=== PATIENT | male | born 1955 | race Caucasian/White ===

== ENCOUNTER 2016-06-25 14:46 | Emergency (ER) | payer BC, MEDICARE ==
[~2016-06-25] VITALS: Ht 167.6 cm; Wt 72.6 kg
[~2016-06-25 14:46] MED LIST: AMINOPHYLLIN200 MG PO; ANAPROX DS550 MG PO; ANTIVERT/2525 MG PO; ATENOLOL25 MG PO; BLOCADREN5 MG PO; COUMADIN10 M1 PO; COUMADIN5 M2 PO; FLEXERIL10 MG PO; HUMIRA40 MG/0.8 MR; IBU-8800 MG PO; LISINOPRIL5 MG PO; MEDROL DOSEPAK4 MG PO; MOTRIN800 MG PO; PERCOCET 325 MG1 TA7 PO; PREDNISONE10 MG PO; QVAR0.08 MG/AC INH; ROBITUSSIN DM 105 ML PO; SIMVASTATIN40 MG PO; VICO10300 PO; VICODIN 5/500 505 MG PO; ZITHROMAX Z PA250 MG PO; ZOCOR5 MG
[2016-06-25 14:55] VITALS: BP 136/85
[2016-06-25 15:17] LABS: BILIRUBIN NEGATIVE (NEGATIVE); BLOOD 2+ (NEGATIVE); CLARITY CLOUDY (CLEAR); COLOR YELLOW (YELLOW); GLUCOSE NEGATIVE (NEGATIVE); KETONE NEGATIVE (NEGATIVE); LEUKO ESTERASE 3+ (NEGATIVE); NITRITE POSITIVE (NEGATIVE); PROTEIN TRACE (NEGATIVE); SPECIFIC GRAVITY 1.015 (1.005-1.030); UROBILINOGEN 0.2 E.U./dl (0.2-1.0)
[2016-06-25 15:27] LABS: URINE REFLEX COMMENT YES (NO); WBC TNTC wbc/hpf (0-5)
[2016-06-25] MEDS ORDERED: PYRIDIUM200 M1 PO (15:31)
[2016-06-25] MEDS ORDERED: OMNICEF300 MG PO (15:31)
== END 2016-06-25 15:36 | disposition home or self-care (01) ==
LOC: ED 14:46
PROVIDERS: Nurse Practitioner Family
DX: N30.00 Acute cystitis without hematuria (principal); F17.200 Nicotine dependence, unspecified, uncomplicated; Z88.1 Allergy status to other antibiotic agents; Z79.01 Long term (current) use of anticoagulants; Z79.899 Other long term (current) drug therapy

== ENCOUNTER → 2016-09-12 | Outpatient (CLI) | payer BC ==
[~2016-09-12] MED LIST changes: +OMNICEF300 MG PO; +PYRIDIUM200 M1 PO
== END | disposition home or self-care (01) ==
LOC: CARD 07:29
DX: I08.3 Combined rheumatic disorders of mitral, aortic and tricuspid valves (principal); Z95.2 Presence of prosthetic heart valve

== ENCOUNTER 2016-12-18 01:33 | Emergency (ER) | payer BC ==
[~2016-12-18] VITALS: Ht 172.7 cm; Wt 72.6 kg
[2016-12-18 01:33] VITALS: BP 134/76
== END 2016-12-18 02:34 | disposition home or self-care (01) ==
LOC: ED 01:33
DX: M25.562 Pain in left knee (principal); M19.90 Unspecified osteoarthritis, unspecified site; Z88.1 Allergy status to other antibiotic agents; Z79.899 Other long term (current) drug therapy; Z79.02 Long term (current) use of antithrombotics/antiplatelets

== ENCOUNTER 2017-12-23 12:03 | Emergency (ER) | payer BC, OTHER ==
[~2017-12-23] VITALS: Ht 170.1 cm; Wt 76.7 kg
--- NOTE | ~2017-12-23 | EKG ---
[place], [place] ELECTROCARDIOGRAM REPORT NAME: RAMON PERALTA UNIT #: [id number] ROOM: DOCTOR: DAYNEANY DRAFT REPORT BIRTHDATE: [birth year] [facility] Test Date: 2017-12-23 Test Time: 12:11:13 Pat Name: RAMON PERALTA Department: Room: Gender: Proposal Development Manager: 15 : 1955 Requested By: BECK CALERO Order Number: [id number] Reading MD: Ken Nails MD Measurements Intervals [place] Rate: 71 P: 38 TN: 232 QRS: 32 QRSD: 95 T: 77 QT: 394 QTc: 429 Interpretive Statements Sinus rhythm Prolonged TN interval Probable left atrial enlargement RSR' in V1 or V2, right VCD or RVH Electronically Signed On 12-24-2017 11:11:06 PDT by Ken Nails MD CM:EKGRPT:ELECTROCARDIOGRAM REPORT [id number] BECK ALVARADO DRAFT REPORT BECK CALERO M.D.
[2017-12-23 12:13] VITALS: BP 135/79
[2017-12-23] MEDS ORDERED: ATENOLOL25 MG PO (12:14)
[2017-12-23] MEDS ORDERED: NORCO 5-325 TA1 EACH PO (12:15)
[2017-12-23 12:27] LABS: BASO % 0.2 % (0.0-1.0); EOS # 0.1 10*3/uL (0.0-0.4); EOS % 1.5 % (1.0-4.0); HEMATOCRIT 39.5 % (42.0-52.0); HEMOGLOBIN 13.3 g/dl (14.0-18.0); LYMPH # 1.2 10*3/uL (1.3-4.4); LYMPH % 22.5 % (27.0-41.0); MEAN CELL VOLUME 98.5 fl (80.0-94.0); MEAN CORPUSCULAR HGB 33.2 pg (27.0-31.0); MEAN CORPUSCULAR HGB CONC 33.7 g/dl (33.0-37.0); MEAN PLATELET VOLUME 10.3 fl (9.6-12.3); MONO # 0.4 10*3/uL (0.1-1.0); MONO % 7.7 % (3.0-9.0); NEUT # 3.5 10*3/uL (2.3-7.9); NEUT % 67.7 % (47.0-73.0); PLATELET COUNT AUTOMATED 160 10*3/uL (130-400); RED BLOOD COUNT 4.01 10*6/uL (4.50-5.90); RED CELL DISTRI WIDTH 13.3 % (0-14.5); WHITE BLOOD COUNT 5.2 10*3/uL (4.8-10.8)
[2017-12-23 12:36] LABS: ACT PARTIAL THROMBO TIME 34.7 SECONDS (20.8-31.5); INTERNATIONAL NORM RATIO 2.6 (2.0-3.5)
[2017-12-23 12:49] LABS: ALBUMIN 3.4 gm/dl (3.1-4.5); ALKALINE PHOSPHATASE 65 U/L (45-117); BUN 14 mg/dl (7-24); CHLORIDE 101 mmol/L (98-107); CREATININE 1.02 mg/dL (0.70-1.30); POTASSIUM 4.1 mmol/L (3.5-5.1); SGOT/AST 22 IU/L (3-35); SGPT/ALT 19 U/L (12-78); SODIUM 133 mmol/L (136-145); TOTAL PROTEIN 7.2 gm/dL (6.4-8.2)
[2017-12-23 12:52] LABS: TROPONIN I < 0.015 ng/ml (<0.045)
[2017-12-23] MEDS ORDERED: CHLORZOXAZONE500 M2 PO (14:16)
[2017-12-23] MEDS ORDERED: NAPROSYN500 MG PO (14:16)
== END 2017-12-23 14:30 | disposition home or self-care (01) ==
LOC: ED 12:03
PROVIDERS: Emergency Medicine
DX: S20.219A Contusion of unspecified front wall of thorax, initial encounter (principal); R03.0 Elevated blood-pressure reading, without diagnosis of hypertension; F17.200 Nicotine dependence, unspecified, uncomplicated; Z79.899 Other long term (current) drug therapy; Z79.01 Long term (current) use of anticoagulants; Z98.890 Other specified postprocedural states; Z88.1 Allergy status to other antibiotic agents; V49.88XA Car occupant (driver) (passenger) injured in other specified transport accidents, initial encounter; Y93.89 Activity, other specified; Y92.413 State road as the place of occurrence of the external cause; Y99.9 Unspecified external cause status

== ENCOUNTER → 2018-09-03 | Outpatient (CLI) | payer BC ==
[~2018-09-03] MED LIST changes: +CHLORZOXAZONE500 M2 PO; +NAPROSYN500 MG PO; +NORCO 5-325 TA1 EACH PO
[2018-09-03 10:44] LABS: BASO % 0.2 % (0.0-1.0); EOS % 0.4 % (1.0-4.0); HEMOGLOBIN 13.2 g/dl (14.0-18.0); LYMPH # 1.6 10*3/uL (1.3-4.4); LYMPH % 27.9 % (27.0-41.0); MEAN CELL VOLUME 101.3 fl (80.0-94.0); MEAN CORPUSCULAR HGB 33.4 pg (27.0-31.0); MEAN PLATELET VOLUME 9.4 fl (9.6-12.3); MONO # 0.7 10*3/uL (0.1-1.0); MONO % 11.6 % (3.0-9.0); NEUT # 3.4 10*3/uL (2.3-7.9); NEUT % 59.7 % (47.0-73.0); PLATELET COUNT AUTOMATED 251 10*3/uL (130-400); RED BLOOD COUNT 3.95 10*6/uL (4.50-5.90); RED CELL DISTRI WIDTH 13.9 % (0-14.5); WHITE BLOOD COUNT 5.6 10*3/uL (4.8-10.8)
[2018-09-03 11:05] LABS: ALKALINE PHOSPHATASE 86 U/L (45-117); BILIRUBIN, DIRECT < 0.1 mg/dL (0.0-0.2); SGOT/AST 33 IU/L (3-35); SGPT/ALT 33 U/L (12-78); TOTAL PROTEIN 7.5 gm/dL (6.4-8.2)
[2018-09-03 11:29] LABS: INTERNATIONAL NORM RATIO 8.4 (2.0-3.5)
== END | disposition home or self-care (01) ==
LOC: LAB 10:16
PROVIDERS: Internal Medicine
DX: T45.511A Poisoning by anticoagulants, accidental (unintentional), initial encounter (principal)

== ENCOUNTER → 2018-12-06 | Outpatient (CLI) | payer BC ==
[2018-12-06 10:33] LABS: ALBUMIN 3.7 gm/dl (3.1-4.5); BUN 16 mg/dl (7-24); CHLORIDE 99 mmol/L (98-107); CREATININE 0.99 mg/dL (0.70-1.30); PHOSPHOROUS 2.7 mg/dL (2.5-4.9); POTASSIUM 4.8 mmol/L (3.5-5.1); SODIUM 132 mmol/L (136-145)
== END | disposition home or self-care (01) ==
LOC: LAB 09:15
PROVIDERS: Internal Medicine
DX: E87.5 Hyperkalemia (principal)

== ENCOUNTER 2020-06-26 07:17 | Emergency (ER) | payer OTHER ==
[~2020-06-26] VITALS: Ht 167.6 cm; Wt 74.8 kg
[~2020-06-26 07:17] MED LIST changes: -COUMADIN10 M1 PO; +Coumadin10 MG PO
[2020-06-26 07:23] VITALS: BP 152/94
[2020-06-26 07:57] LABS: BASO % 0.2 % (0.0-1.0); EOS # 0.1 10*3/uL (0.0-0.4); EOS % 2.4 % (1.0-4.0); HEMATOCRIT 41.5 % (42.0-52.0); LYMPH # 1.6 10*3/uL (1.3-4.4); LYMPH % 29.4 % (27.0-41.0); MEAN CORPUSCULAR HGB 29.8 pg (27.0-31.0); MONO # 0.8 10*3/uL (0.1-1.0); MONO % 14.1 % (3.0-9.0); NEUT # 2.9 10*3/uL (2.3-7.9); NEUT % 53.7 % (47.0-73.0); PLATELET COUNT AUTOMATED 193 10*3/uL (130-400); RED BLOOD COUNT 4.46 10*6/uL (4.50-5.90); RED CELL DISTRI WIDTH 14.6 % (0-14.5); WHITE BLOOD COUNT 5.5 10*3/uL (4.8-10.8)
[2020-06-26 08:07] LABS: ACT PARTIAL THROMBO TIME 47.5 SECONDS (20.0-32.1); INTERNATIONAL NORM RATIO 2.6 (2.0-3.5)
[2020-06-26 08:08] LABS: BILIRUBIN Negative (Negative); BLOOD Negative (Negative); CLARITY Clear (Clear); COLOR Yellow (Yellow); GLUCOSE Negative (Negative); KETONE Negative (Negative); LEUKO ESTERASE Negative (Negative); NITRITE Negative (Negative); PH 7.5 (4.5-8.0); SPECIFIC GRAVITY <= 1.005 (1.001-1.030); UROBILINOGEN 0.2 E.U./dl (0.0-1.0)
[2020-06-26 08:13] LABS: ALBUMIN 3.2 gm/dl (3.1-4.5); ALKALINE PHOSPHATASE 112 U/L (45-117); BUN 19 mg/dl (7-24); CHLORIDE 98 mmol/L (98-107); CREATININE 1.12 mg/dL (0.70-1.30); LIPASE 49 U/L (73-393); POTASSIUM 4.2 mmol/L (3.5-5.1); SGOT/AST 25 IU/L (3-35); SGPT/ALT 20 U/L (12-78); SODIUM 132 mmol/L (136-145); TOTAL PROTEIN 8.1 gm/dL (6.4-8.2)
[2020-06-26 08:22] LABS: RBC 0-2 rbc/hpf (0-2); WBC 0-2 wbc/hpf (0-5)
[2020-06-26] MEDS ORDERED: AUGMENTIN 875875 MG PO ×2 (09:19)
[2020-08-03] MEDS ORDERED: Coumadin7.5 MG PO (15:35)
[2020-08-03] MEDS ORDERED: TOPROL XL25 MG PO (15:36)
[2020-08-03] MEDS ORDERED: HYDROCODONE-AC1 EACH PO (15:39)
[2020-08-03] MEDS ORDERED: Lovenox40 MG/0.4 SC (15:40)
== END 2020-06-26 09:25 | disposition home or self-care (01) ==
LOC: ED 07:17
PROVIDERS: Emergency Medicine
DX: K57.32 Diverticulitis of large intestine without perforation or abscess without bleeding (principal); M17.11 Unilateral primary osteoarthritis, right knee; Z88.1 Allergy status to other antibiotic agents; Z79.899 Other long term (current) drug therapy; Z79.01 Long term (current) use of anticoagulants; Z98.890 Other specified postprocedural states; Z98.61 Coronary angioplasty status

== ENCOUNTER → 2020-08-03 | Outpatient (CLI) | payer OTHER ==
[~2020-08-03] MED LIST changes: +AUGMENTIN 875875 MG PO; +Coumadin7.5 MG PO; +HYDROCODONE-AC1 EACH PO; +Lovenox40 MG/0.4 SC; +TOPROL XL25 MG PO
== END | disposition home or self-care (01) ==
LOC: COVID19 08:30
PROVIDERS: ATTEND Nurse Practitioner
DX: Z01.812 Encounter for preprocedural laboratory examination (principal); Z20.822 Contact with and (suspected) exposure to COVID-19

== ENCOUNTER → 2020-08-06 | Day surgery (SDC) | payer OTHER ==
[~2020-08-06] VITALS: Ht 167.6 cm; Wt 77.1 kg
[2020-08-06 06:30] VITALS: BP 155/87
[2020-08-06 07:48] VITALS: BP 99/42
[2020-08-06 08:02] VITALS: BP 109/65
[2020-08-06 08:16] VITALS: BP 114/88
== END ==
LOC: SDC 08-03 08:00
PROVIDERS: ATTEND Surgery
DX: Z12.11 Encounter for screening for malignant neoplasm of colon (principal); K57.32 Diverticulitis of large intestine without perforation or abscess without bleeding; K57.30 Diverticulosis of large intestine without perforation or abscess without bleeding; I10 Essential (primary) hypertension; M06.9 Rheumatoid arthritis, unspecified; I25.10 Atherosclerotic heart disease of native coronary artery without angina pectoris; Z95.1 Presence of aortocoronary bypass graft; F17.210 Nicotine dependence, cigarettes, uncomplicated; Z79.899 Other long term (current) drug therapy

== ENCOUNTER 2022-06-27 09:25 | Emergency (ER) | payer OTHER ==
[~2022-06-27] VITALS: Wt 77.1 kg
[2022-06-27 09:34] VITALS: BP 149/98
[2022-06-27 11:01] LABS: BASO % 0.3 % (0.0-1.0); EOS % 0.7 % (1.0-4.0); HEMATOCRIT 42.1 % (42.0-52.0); LYMPH % 17.1 % (27.0-41.0); MEAN CELL VOLUME 98.6 fl (80.0-94.0); MEAN CORPUSCULAR HGB CONC 33.5 g/dl (33.0-37.0); MEAN PLATELET VOLUME 10.8 fl (9.6-12.3); MONO # 0.6 10*3/uL (0.1-1.0); MONO % 10.6 % (3.0-9.0); NEUT # 4.2 10*3/uL (2.3-7.9); PLATELET COUNT AUTOMATED 162 10*3/uL (130-400); RED BLOOD COUNT 4.27 10*6/uL (4.50-5.90); RED CELL DISTRI WIDTH 14.5 % (0-14.5); WHITE BLOOD COUNT 5.9 10*3/uL (4.8-10.8)
[2022-06-27 11:17] LABS: ALKALINE PHOSPHATASE 95 U/L (46-116); BUN 17 mg/dl (9-23); CHLORIDE 99 mmol/L (98-107); POTASSIUM 4.2 mmol/L (3.4-5.1); SGPT/ALT 23 U/L (10-49); TOTAL PROTEIN 7.8 gm/dL (6.0-8.0); URIC ACID 6.5 mg/dL (3.7-9.2)
[2022-06-27 11:24] LABS: ACT PARTIAL THROMBO TIME 56.9 SECONDS (20.0-32.1)
[2022-06-27 11:32] LABS: INTERNATIONAL NORM RATIO 4.8 (2.0-3.5)
[2022-06-27] MEDS ORDERED: CEPHALEXIN500 M1 PO (12:17)
== END 2022-06-27 12:51 | disposition home or self-care (01) ==
LOC: ED 09:25
PROVIDERS: Emergency Medicine
DX: L03.113 Cellulitis of right upper limb (principal); Z88.1 Allergy status to other antibiotic agents; Z98.890 Other specified postprocedural states; F10.90 Alcohol use, unspecified, uncomplicated

== ENCOUNTER → 2022-11-30 | Outpatient (CLI) | payer OTHER ==
[~2022-11-30] MED LIST changes: +CEPHALEXIN500 M1 PO
[2022-11-30 09:04] LABS: BASO % 0.4 % (0.0-1.0); EOS # 0.1 10*3/uL (0.0-0.4); EOS % 1.6 % (1.0-4.0); HEMATOCRIT 42.2 % (42.0-52.0); LYMPH # 1.2 10*3/uL (1.3-4.4); LYMPH % 23.5 % (27.0-41.0); MEAN CELL VOLUME 97.7 fl (80.0-94.0); MEAN CORPUSCULAR HGB 32.2 pg (27.0-31.0); MEAN CORPUSCULAR HGB CONC 32.9 g/dl (33.0-37.0); MEAN PLATELET VOLUME 10.6 fl (9.6-12.3); MONO # 0.6 10*3/uL (0.1-1.0); MONO % 11.9 % (3.0-9.0); NEUT # 3.2 10*3/uL (2.3-7.9); NEUT % 62.4 % (47.0-73.0); PLATELET COUNT AUTOMATED 187 10*3/uL (130-400); RED BLOOD COUNT 4.32 10*6/uL (4.50-5.90); RED CELL DISTRI WIDTH 14.1 % (0-14.5); WHITE BLOOD COUNT 5.1 10*3/uL (4.8-10.8)
[2022-11-30 09:44] LABS: ALKALINE PHOSPHATASE 87 U/L (46-116); BUN 10 mg/dl (9-23); CHLORIDE 100 mmol/L (98-107); SGPT/ALT 17 U/L (10-49); TOTAL PROTEIN 7.9 gm/dL (6.0-8.0)
[2022-12-02 19:06] LABS: TB1 Ag VALUE 0.05 IU/mL (.)
== END | disposition home or self-care (01) ==
LOC: LAB 08:19
PROVIDERS: ATTEND Nurse Practitioner Family
DX: L40.0 Psoriasis vulgaris (principal)

== ENCOUNTER 2023-10-08 07:19 | Emergency (ER) | payer OTHER ==
[~2023-10-08] VITALS: Ht 167.6 cm; Wt 73.9 kg
[2023-10-08 08:39] VITALS: BP 99/61
[2023-10-08] MEDS ORDERED: ACETAMINOPHEN 325 MG TAB PO ONE (08:40)
== END 2023-10-08 12:18 | disposition home or self-care (01) ==
LOC: ED 07:19
DX: S09.8XXA Other specified injuries of head, initial encounter (principal); R42 Dizziness and giddiness; I10 Essential (primary) hypertension; I25.10 Atherosclerotic heart disease of native coronary artery without angina pectoris; M19.90 Unspecified osteoarthritis, unspecified site; Z88.1 Allergy status to other antibiotic agents; Z98.890 Other specified postprocedural states; W19.XXXA Unspecified fall, initial encounter; Y93.89 Activity, other specified; Y92.89 Other specified places as the place of occurrence of the external cause; Y99.8 Other external cause status

== ENCOUNTER 2023-10-28 17:43 | Emergency (ER) | payer OTHER ==
[~2023-10-28] VITALS: Ht 167.6 cm; Wt 74.8 kg
[2023-10-28 17:54] VITALS: BP 127/68
[2023-10-28] MEDS ORDERED: ceFAZolin sodium/sodium chlor 10 ML IV ONE (18:00)
[2023-10-28] MEDS ORDERED: SODIUM CHLORIDE 0.9% 1,000 ML IV ONE (18:00)
[2023-10-28] MEDS ORDERED: Doxycycline Hyclate 100 MG CAP PO ONE (18:05)
[2023-10-28] MEDS ORDERED: VIBRAMYCIN100 MG PO (18:06)
[2023-10-28] MEDS ORDERED: CEPHALEXIN500 M1 PO (18:06)
[2023-10-28 18:32] LABS: BASO % 0.3 % (0.0-1.0); EOS # 0.2 10*3/uL (0.0-0.4); EOS % 2.9 % (1.0-4.0); LYMPH % 32.8 % (27.0-41.0); MEAN CELL VOLUME 94.4 fl (80.0-94.0); MEAN CORPUSCULAR HGB 31.6 pg (27.0-31.0); MEAN CORPUSCULAR HGB CONC 33.5 g/dl (33.0-37.0); MEAN PLATELET VOLUME 10.7 fl (9.6-12.3); MONO # 0.6 10*3/uL (0.1-1.0); MONO % 9.5 % (3.0-9.0); NEUT # 3.4 10*3/uL (2.3-7.9); NEUT % 54.3 % (47.0-73.0); PLATELET COUNT AUTOMATED 201 10*3/uL (130-400); RED BLOOD COUNT 3.92 10*6/uL (4.50-5.90); RED CELL DISTRI WIDTH 13.4 % (0-14.5); WHITE BLOOD COUNT 6.2 10*3/uL (4.8-10.8)
[2023-10-28 18:48] LABS: BUN 18 mg/dl (9-23); CHLORIDE 99 mmol/L (98-107); POTASSIUM 3.9 mmol/L (3.4-5.1)
== END 2023-10-28 18:47 | disposition home or self-care (01) ==
LOC: ED 17:43
PROVIDERS: Emergency Medicine
DX: L03.116 Cellulitis of left lower limb (principal); I10 Essential (primary) hypertension; I25.10 Atherosclerotic heart disease of native coronary artery without angina pectoris; M19.90 Unspecified osteoarthritis, unspecified site; Z88.1 Allergy status to other antibiotic agents; Z98.890 Other specified postprocedural states

== ENCOUNTER 2024-06-05 17:57 | Emergency (ER) | payer OTHER ==
[~2024-06-05] VITALS: Ht 167.6 cm; Wt 77.1 kg
[~2024-06-05 17:57] MED LIST changes: +VIBRAMYCIN100 MG PO
[2024-06-05 18:08] VITALS: BP 137/70
== END 2024-06-05 20:40 | disposition left against medical advice (07) ==
LOC: ED 17:57
DX: M54.2 Cervicalgia (principal); M43.6 Torticollis; Z88.1 Allergy status to other antibiotic agents; Z79.899 Other long term (current) drug therapy; Z79.01 Long term (current) use of anticoagulants; Z98.890 Other specified postprocedural states; Z98.61 Coronary angioplasty status; Z53.29 Procedure and treatment not carried out because of patient's decision for other reasons; V69.49XA Driver of heavy transport vehicle injured in collision with other motor vehicles in traffic accident, initial encounter; Y93.89 Activity, other specified; Y92.488 Other paved roadways as the place of occurrence of the external cause; Y99.8 Other external cause status

== ENCOUNTER 2024-10-16 08:54 | Emergency (ER) | payer OTHER ==
[~2024-10-16] VITALS: Ht 167.6 cm; Wt 72.6 kg
[2024-10-16 09:28] VITALS: BP 104/70
[2024-10-16] MEDS ORDERED: MORPHINE Sulfate 2 MG/ML SYR IM ONE (09:55)
== END 2024-10-16 12:52 | disposition home or self-care (01) ==
LOC: ED 08:54
DX: S40.012A Contusion of left shoulder, initial encounter (principal); Z79.899 Other long term (current) drug therapy; Z88.1 Allergy status to other antibiotic agents; Z98.890 Other specified postprocedural states; I10 Essential (primary) hypertension; I25.10 Atherosclerotic heart disease of native coronary artery without angina pectoris; X58.XXXA Exposure to other specified factors, initial encounter; Y93.89 Activity, other specified; Y92.89 Other specified places as the place of occurrence of the external cause; Y99.8 Other external cause status

== ENCOUNTER 2024-11-26 21:06 | Emergency (ER) | payer OTHER ==
[~2024-11-26] VITALS: Ht 167.6 cm; Wt 72.6 kg
[2024-11-26 23:17] LABS: BASO # 0.0 10*3/uL (0.0-0.1); BASO % 0.2 % (0.0-1.0); EOS # 0.0 10*3/uL (0.0-0.4); EOS % 0.2 % (1.0-4.0); MEAN CELL VOLUME 94.9 fl (80.0-94.0); MEAN CORPUSCULAR HGB 30.5 pg (27.0-31.0); MEAN PLATELET VOLUME 10.7 fl (9.6-12.3); MONO # 0.1 10*3/uL (0.1-1.0); MONO % 1.9 % (3.0-9.0); NEUT # 4.1 10*3/uL (2.3-7.9); NEUT % 85.1 % (47.0-73.0); NUCLEATED RED BLOOD CELL 0.0 % (0.0-0.0); NUCLEATED RED BLOOD CELL 0.0 10*3/uL (0.0-0.0); PLATELET COUNT AUTOMATED 179 10*3/uL (130-400); RED CELL DISTRI WIDTH 13.7 % (0-14.5)
[2024-11-26 23:32] VITALS: BP 110/64
[2024-11-26 23:37] LABS: BUN 26.0 mg/dl (9-23)
== END 2024-11-27 00:52 | disposition home or self-care (01) ==
LOC: ED 21:06
PROVIDERS: Emergency Medicine
DX: R03.1 Nonspecific low blood-pressure reading (principal); N17.9 Acute kidney failure, unspecified; R79.1 Abnormal coagulation profile; R42 Dizziness and giddiness; Z88.1 Allergy status to other antibiotic agents; Z79.899 Other long term (current) drug therapy; Z79.01 Long term (current) use of anticoagulants; Z98.61 Coronary angioplasty status; Z98.890 Other specified postprocedural states

== ENCOUNTER 2024-12-29 05:40 | Emergency (ER) | payer OTHER ==
[~2024-12-29] VITALS: Ht 167.6 cm; Wt 72.6 kg
[2024-12-29 07:59] VITALS: BP 103/55
[2024-12-29] MEDS ORDERED: PERCOCET 5-3251 EACH PO (09:00)
[2024-12-29] MEDS ORDERED: SEPTDS PO (09:00)
== END 2024-12-29 09:03 | disposition home or self-care (01) ==
LOC: ED 05:40
DX: R22.2 Localized swelling, mass and lump, trunk (principal); Z98.890 Other specified postprocedural states; Z88.1 Allergy status to other antibiotic agents

== ENCOUNTER 2024-12-31 17:53 | Emergency (ER) | payer OTHER ==
[~2024-12-31] VITALS: Ht 167.6 cm; Wt 72.6 kg
[~2024-12-31 17:53] MED LIST changes: +PERCOCET 5-3251 EACH PO; +SEPTDS PO
[2024-12-31 18:27] VITALS: BP 101/84
== END 2024-12-31 20:18 | disposition home or self-care (01) ==
LOC: ED 17:53
DX: R22.2 Localized swelling, mass and lump, trunk (principal); I10 Essential (primary) hypertension; I25.10 Atherosclerotic heart disease of native coronary artery without angina pectoris; Z79.899 Other long term (current) drug therapy; Z88.1 Allergy status to other antibiotic agents; Z98.890 Other specified postprocedural states